=== PATIENT | female | born 1970 | race African-American/Black ===

== ENCOUNTER 2018-09-23 22:51 | Emergency (ER) | payer OTHER ==
[~2018-09-23] VITALS: Ht 165.1 cm; Wt 73.0 kg
[~2018-09-23 22:51] MED LIST: DICY20TA11; ONDA4TAB50
[2018-09-24] MEDS ORDERED: ONDANSETRON 4MG ODT PO ONE (01:00)
[2018-09-24] MEDS ORDERED: MORPHINE SULFATE 10 MG/ML CPJ IM ONE (01:00)
[2018-09-24 01:22] LABS: CHLORIDE 104 mEq/L (98-107)
[2018-09-24 01:23] LABS: BASOPHILS % 0.4 % (0.0-2.0); EOSINOPHILS % 1.9 % (0.0-5.0); HEMATOCRIT. 38.9 % (36.0-48.0); HEMOGLOBIN. 13.6 g/dL (12.0-16.0); LYMPHOCYTES % 30.7 % (20.0-50.0); MEAN CORPUSCULAR HEMOGLOBIN 32.8 pg (28.0-32.0); MEAN CORPUSCULAR VOLUME 93.9 fL (81.0-99.0); MEAN PLATELET VOLUME 7.1 fl (7.4-10.4); MONOCYTES % 9.2 % (2.0-8.0); NEUTROPHILS % 57.8 % (40.0-76.0); PLATELET 305 x1000/uL (130-400); RED BLOOD CELL COUNT 4.14 mill/uL (4.2-5.4); RED CELL DISTRIBUTION WIDTH 14.2 % (11.6-14.6)
[2018-09-24 02:59] VITALS: BP 147/101
== END 2018-09-24 02:59 | disposition home or self-care (01) ==
LOC: ER 22:51
DX: S42.035A Nondisplaced fracture of lateral end of left clavicle, initial encounter for closed fracture (principal); R55 Syncope and collapse; F17.210 Nicotine dependence, cigarettes, uncomplicated; Z71.6 Tobacco abuse counseling; W01.0XXA Fall on same level from slipping, tripping and stumbling without subsequent striking against object, initial encounter; Y93.89 Activity, other specified; Y92.018 Other place in single-family (private) house as the place of occurrence of the external cause
CPT/HCPCS: 36415; 70450; 71045; 72125; 73030; 80053; 81025; 84484; 85025; 93005; 96372; 99284; 99406; J2270; Q0162; A4565

== ENCOUNTER 2018-11-04 14:22 | Emergency (ER) | payer OTHER ==
[~2018-11-04] VITALS: Ht 165.1 cm; Wt 82.0 kg
[2018-11-04] MEDS ORDERED: ONDANSETRON HCL 4MG/2ML INJ IV STA (14:36)
[2018-11-04] MEDS ORDERED: FAMOTIDINE 20MG/2ML VIAL IV STA (14:36)
[2018-11-04] MEDS ORDERED: SODIUM CHLORIDE 0.9% 1,000 ML IV ONE (14:36)
[2018-11-04] MEDS ORDERED: MORPHINE SULFATE 4 MG/ML CPJ (NOT FOR IM USE) IV STA (14:36)
[2018-11-04 14:57] LABS: HEMATOCRIT. 39.4 % (36.0-48.0); HEMOGLOBIN. 13.5 g/dL (12.0-16.0); MEAN CORPUSCULAR HEMOGLOBIN 32.2 pg (28.0-32.0); MEAN CORPUSCULAR VOLUME 94.2 fL (81.0-99.0); MEAN PLATELET VOLUME 7.2 fl (7.4-10.4); PLATELET 689 x1000/uL (130-400); RED BLOOD CELL COUNT 4.19 mill/uL (4.2-5.4); RED CELL DISTRIBUTION WIDTH 14.8 % (11.6-14.6)
[2018-11-04 15:03] LABS: CHLORIDE 109 mEq/L (98-107)
[2018-11-04 15:04] LABS: INR 1.1; PROTHROMBIN TIME 11.2 sec (9.6-11.0)
[2018-11-04 15:07] LABS: ETHANOL BLOOD < 10 mg/dL
[2018-11-04 15:10] LABS: CLARITY URINE TURBID (CLEAR); COLOR URINE DARK YELLOW (YELLOW); KETONES URINE TRACE (NEGATIVE); LEUKOCYTE ESTERASE URINE 2+ (NEGATIVE); NITRITE URINE POSITIVE (NEGATIVE); OCCULT BLOOD URINE 3+ (NEGATIVE); PH URINE 5.5 (4.5-8.0); PROTEIN URINE 2+ (NEGATIVE)
[2018-11-04 15:21] LABS: HCG SCREEN NEGATIVE
[2018-11-04 15:36] LABS: *AMPHETAMINES SCREEN URINE NEGATIVE (NEGATIVE); *BARBITURATES SCREEN URINE NEGATIVE (NEGATIVE); *BENZODIAZEPINES SCREEN URINE NEGATIVE (NEGATIVE); *COCAINE SCREEN URINE NEGATIVE (NEGATIVE)
[2018-11-04 15:37] LABS: CANNABINOID URINE SCREEN NEGATIVE (NEGATIVE); METHADONE URINE SCREEN NEGATIVE (NEGATIVE); PHENCYCLIDINE URINE SCREEN NEGATIVE (NEGATIVE)
[2018-11-04 15:41] LABS: OPIATES URINE SCREEN PRESUMTIVE POSITIVE (NEGATIVE)
[2018-11-04 15:42] LABS: PLATELET ESTIMATE MARKEDLY INCREASED
[2018-11-04] MEDS ORDERED: CEFTRIAXONE 1 G PREMIX 50 ML IV ONE (15:45)
[2018-11-04] MEDS ORDERED: LEVOFLOXACIN 500MG PREMIX 100 ML IV ONE (15:45)
[2018-11-04 17:58] VITALS: BP 125/86
[2018-11-12] MEDS ORDERED: ACET-2178 MT (10:47)
[2018-11-12] MEDS ORDERED: CIPR500S3 PO (10:47)
[2018-11-12] MEDS ORDERED: AMLO10TA4 PO (10:47)
[2018-11-12] MEDS ORDERED: PANT40TA4 PO (10:47)
== END 2018-11-04 18:30 | disposition home or self-care (01) ==
LOC: ER 14:22 → CANBEDREQ 19:27
DX: N39.0 Urinary tract infection, site not specified (principal); R11.2 Nausea with vomiting, unspecified; I10 Essential (primary) hypertension; K25.9 Gastric ulcer, unspecified as acute or chronic, without hemorrhage or perforation; Z98.890 Other specified postprocedural states
CPT/HCPCS: 36415; 71045; 74176; 80053; 80305; 80320; 81003; 83690; 84703; 85025; 85610; 87077; 87086; 87186; 96365; 96375; 99284; J0696; J2270; J2405; J3490; J7030; Z7610; G0480

== ENCOUNTER 2018-11-10 12:59 | Emergency (ER) | payer OTHER ==
[~2018-11-10] VITALS: Ht 170.2 cm; Wt 59.0 kg
[2018-11-10] MEDS ORDERED: MORPHINE SULFATE 4 MG/ML CPJ (NOT FOR IM USE) IV STA ×2 (14:20→16:41)
[2018-11-10] MEDS ORDERED: ONDANSETRON HCL 4MG/2ML INJ IV STA ×2 (14:20→16:41)
[2018-11-10 14:35] LABS: BASOPHILS % 0.6 % (0.0-2.0); HEMATOCRIT. 42.7 % (36.0-48.0); HEMOGLOBIN. 14.3 g/dL (12.0-16.0); LYMPHOCYTES % 18.1 % (20.0-50.0); MEAN CORPUSCULAR VOLUME 92.5 fL (81.0-99.0); MEAN PLATELET VOLUME 7.3 fl (7.4-10.4); MONOCYTES % 9.5 % (2.0-8.0); NEUTROPHILS % 71.8 % (40.0-76.0); PLATELET 398 x1000/uL (130-400); RED BLOOD CELL COUNT 4.62 mill/uL (4.2-5.4); RED CELL DISTRIBUTION WIDTH 14.1 % (11.6-14.6)
[2018-11-10 14:41] LABS: CHLORIDE 103 mEq/L (98-107)
[2018-11-10 16:45] LABS: CLARITY URINE CLEAR (CLEAR); COLOR URINE DARK YELLOW (YELLOW); KETONES URINE 3+ (NEGATIVE); LEUKOCYTE ESTERASE URINE TRACE (NEGATIVE); NITRITE URINE NEGATIVE (NEGATIVE); OCCULT BLOOD URINE 3+ (NEGATIVE); PH URINE 7.5 (4.5-8.0); PROTEIN URINE 2+ (NEGATIVE); SPECIFIC GRAVITY URINE 1.017 (1.005-1.030)
[2018-11-10] MEDS ORDERED: CEFTRIAXONE 1 G PREMIX 50 ML IV NR (17:15)
[2018-11-10] MEDS ORDERED: HYDROCODONE/ACETAMINOPHEN 5/325MG TABLET PO ONE (17:45)
[2018-11-10 18:15] VITALS: BP 125/98
[2018-11-10] MEDS ORDERED: IOHEXOL-300 100 ML BOTTLE ONE (19:15)
[2018-11-12] MEDS ORDERED: AMLO10TA4 PO (10:47)
[2018-11-12] MEDS ORDERED: PANT40TA4 PO (10:47)
[2018-11-12] MEDS ORDERED: ACET-2178 MT (10:47)
[2018-11-12] MEDS ORDERED: CIPR500S3 PO (10:47)
== END 2018-11-10 18:19 | disposition home or self-care (01) ==
LOC: ER 12:59
DX: R10.13 Epigastric pain (principal); R11.2 Nausea with vomiting, unspecified; I10 Essential (primary) hypertension; Z87.11 Personal history of peptic ulcer disease; Z98.890 Other specified postprocedural states
CPT/HCPCS: 36415; 74177; 80053; 81003; 81025; 83690; 85025; 96365; 96375; 96376; 99284; J0696; J2270; J2405; Q9967

== ENCOUNTER 2018-11-14 15:34 | Emergency (ER) | payer OTHER ==
[~2018-11-14] VITALS: Ht 167.6 cm; Wt 75.0 kg
[~2018-11-14 15:34] MED LIST changes: +ACET-2178 MT; +AMLO10TA4 PO; +PANT40TA4 PO
[2018-11-14] MEDS ORDERED: SODIUM CHLORIDE 0.9% 1,000 ML IV ONE (16:45)
[2018-11-14] MEDS ORDERED: ONDANSETRON HCL 4MG/2ML INJ IV ONE ×2 (16:45→20:00)
[2018-11-14] MEDS ORDERED: KETOROLAC 30MG/ML VIAL IV ONE (17:00)
[2018-11-14 17:07] LABS: EOSINOPHILS % 0.4 % (0.0-5.0); HEMATOCRIT. 44.9 % (36.0-48.0); HEMOGLOBIN. 15.3 g/dL (12.0-16.0); LYMPHOCYTES % 26.8 % (20.0-50.0); MEAN CORPUSCULAR HEMOGLOBIN 31.4 pg (28.0-32.0); MEAN CORPUSCULAR VOLUME 92.1 fL (81.0-99.0); MONOCYTES % 12.7 % (2.0-8.0); NEUTROPHILS % 59.1 % (40.0-76.0); PLATELET 309 x1000/uL (130-400); RED BLOOD CELL COUNT 4.87 mill/uL (4.2-5.4); RED CELL DISTRIBUTION WIDTH 13.6 % (11.6-14.6)
[2018-11-14 17:12] LABS: CHLORIDE 99 mEq/L (98-107)
[2018-11-14 17:19] LABS: INR 1.1; PROTHROMBIN TIME 11.8 sec (9.6-11.0)
[2018-11-14] MEDS ORDERED: FAMOTIDINE 20MG/2ML VIAL IV ONE (18:00)
[2018-11-14] MEDS ORDERED: MORPHINE SULFATE 4 MG/ML CPJ (NOT FOR IM USE) IV NR (18:00)
[2018-11-14] MEDS ORDERED: KETOROLAC 15MG/ML VIAL IV NR (18:15)
[2018-11-14 19:26] LABS: CLARITY URINE CLOUDY (CLEAR); COLOR URINE YELLOW (YELLOW); KETONES URINE 2+ (NEGATIVE); LEUKOCYTE ESTERASE URINE NEGATIVE (NEGATIVE); NITRITE URINE NEGATIVE (NEGATIVE); OCCULT BLOOD URINE 3+ (NEGATIVE); PH URINE 7.5 (4.5-8.0); PROTEIN URINE 1+ (NEGATIVE); SPECIFIC GRAVITY URINE 1.016 (1.005-1.030); UROBILINOGEN URINE 0.2 E.U./dL (0.2-1.0)
[2018-11-14] MEDS ORDERED: LORAZEPAM 2MG/ML CPJ IV ONE (20:00)
[2018-11-14] MEDS ORDERED: METOCLOPRAMIDE HCL 10MG/2ML VIAL IV ONE (20:00)
[2018-11-15 01:15] VITALS: BP 124/58
== END 2018-11-15 01:21 | disposition short-term general hospital (02) ==
LOC: ER 15:34 → CANRESERV 23:08 → ENRESERV 23:08 → ER 11-15 01:21 → CANBEDREQ 11-15 06:20
DX: R11.2 Nausea with vomiting, unspecified (principal); R10.84 Generalized abdominal pain; I10 Essential (primary) hypertension; Z79.899 Other long term (current) drug therapy; Z98.890 Other specified postprocedural states
CPT/HCPCS: 36415; 80053; 81003; 83690; 85025; 85610; 96361; 96374; 96375; 99285; J1885; J2060; J2270; J2405; J2765; J3490; J7030

== ENCOUNTER 2019-05-09 03:34 | Inpatient (IN) | payer OTHER ==
[~2019-05-09] VITALS: Ht 167.6 cm; Wt 60.3 kg
[~2019-05-09 03:34] MED LIST changes: -ACET-2178 MT; -DICY20TA11; +DICY20TA11 PO; -ONDA4TAB50; +ONDA4TAB50 PO; +TOPUD MT
[2019-05-09] MEDS ORDERED: MAGNESIUM/ALUMINUM HYDROXIDE/SIMETHICONE 30ML UDC PO STA (03:55)
[2019-05-09] MEDS ORDERED: ONDANSETRON 4MG ODT PO STA (03:55)
[2019-05-09] MEDS ORDERED: VISCOUS LIDOCAINE 2% 15 ML UDC PO STA (03:55)
[2019-05-09 04:28] LABS: BASOPHILS % 1.2 % (0.0-2.0); EOSINOPHILS % 0.6 % (0.0-5.0); HEMOGLOBIN. 15.1 g/dL (12.0-16.0); LYMPHOCYTES % 36.5 % (20.0-50.0); MEAN CORPUSCULAR HEMOGLOBIN 31.6 pg (28.0-32.0); MEAN CORPUSCULAR VOLUME 92.3 fL (81.0-99.0); MEAN PLATELET VOLUME 7.5 fl (7.4-10.4); MONOCYTES % 10.5 % (2.0-8.0); NEUTROPHILS % 51.2 % (40.0-76.0); PLATELET 271 x1000/uL (130-400); RED BLOOD CELL COUNT 4.77 mill/uL (4.2-5.4); RED CELL DISTRIBUTION WIDTH 13.4 % (11.6-14.6)
[2019-05-09 04:30] LABS: CHLORIDE 101 mEq/L (98-107)
[2019-05-09 04:31] LABS: INR 1.1; PROTHROMBIN TIME 11.1 sec (9.6-11.0)
[2019-05-09 04:34] LABS: ETHANOL BLOOD < 10 mg/dL
[2019-05-09] MEDS ORDERED: ASPIRIN 325MG EC TABLET PO ONE (05:00)
[2019-05-09] MEDS ORDERED: POTASSIUM CHLORIDE 20MEQ TABLET SR PO SCH (05:00)
[2019-05-09] MEDS ORDERED: ONDANSETRON HCL 4MG/2ML INJ IV ONE (05:00)
[2019-05-09] MEDS ORDERED: METOCLOPRAMIDE HCL 10MG/2ML VIAL IV ONE (06:45)
[2019-05-09 08:38] LABS: CLARITY URINE CLOUDY (CLEAR); COLOR URINE YELLOW (YELLOW); KETONES URINE 1+ (NEGATIVE); LEUKOCYTE ESTERASE URINE NEGATIVE (NEGATIVE); NITRITE URINE NEGATIVE (NEGATIVE); OCCULT BLOOD URINE 2+ (NEGATIVE); PH URINE 6.5 (4.5-8.0); PROTEIN URINE 1+ (NEGATIVE); SPECIFIC GRAVITY URINE 1.016 (1.005-1.030); UROBILINOGEN URINE 0.2 E.U./dL (0.2-1.0)
[2019-05-09 09:25] LABS: *AMPHETAMINES SCREEN URINE NEGATIVE (NEGATIVE); *BARBITURATES SCREEN URINE NEGATIVE (NEGATIVE); *BENZODIAZEPINES SCREEN URINE NEGATIVE (NEGATIVE)
[2019-05-09 09:26] LABS: *COCAINE SCREEN URINE NEGATIVE (NEGATIVE); CANNABINOID URINE SCREEN NEGATIVE (NEGATIVE); METHADONE URINE SCREEN NEGATIVE (NEGATIVE); PHENCYCLIDINE URINE SCREEN NEGATIVE (NEGATIVE)
[2019-05-09 09:30] LABS: OPIATES URINE SCREEN PRESUMTIVE POSITIVE (NEGATIVE)
[2019-05-09] MEDS ORDERED: MORPHINE SULFATE 2 MG/ML CPJ (NOT FOR IM USE) IV NR (10:00)
[2019-05-09] MEDS ORDERED: ENALAPRIL 1.25MG/ML VIAL 1ML IV NR (10:00)
[2019-05-09] MEDS: ONDANSETRON HCL 4MG/2ML INJ IV NR ×2 (10:03→11:25)
[2019-05-09 10:10] VITALS: BP 153/96
[2019-05-09] MEDS ORDERED: CLONIDINE 0.1MG TABLET PO NR (11:00)
[2019-05-09] MEDS ORDERED: MORPHINE SULFATE 2 MG/ML CPJ (NOT FOR IM USE) IV PRN (11:00)
[2019-05-09] MEDS ORDERED: ONDANSETRON HCL 4MG/2ML INJ IV PRN (11:00)
[2019-05-09 12:00] VITALS: BP 163/106
[2019-05-09] MEDS ORDERED: APIX5TAB MT (12:56)
[2019-05-09] MEDS ORDERED: OMEP20CA5 MT (12:56)
[2019-05-09] MEDS ORDERED: KCL 20MEQ/100ML PREMIX 100 ML IV NR (13:00)
[2019-05-09 13:15] VITALS: BP 163/106
== END 2019-05-09 13:48 | disposition short-term general hospital (02) | DRG 241 ==
LOC: ER 03:34 → CANBEDREQ 07:52 → 7WST 09:08 → ENRESERV 09:34
PROVIDERS: ADMIT Internal Medicine; ATTEND Internal Medicine
DX: K25.9 Gastric ulcer, unspecified as acute or chronic, without hemorrhage or perforation (principal); E87.6 Hypokalemia; K52.9 Noninfective gastroenteritis and colitis, unspecified; F17.210 Nicotine dependence, cigarettes, uncomplicated; R74.0 Nonspecific elevation of levels of transaminase and lactic acid dehydrogenase [LDH]; R07.89 Other chest pain; R73.9 Hyperglycemia, unspecified; I10 Essential (primary) hypertension; N39.0 Urinary tract infection, site not specified; Z79.01 Long term (current) use of anticoagulants; Z86.711 Personal history of pulmonary embolism; Z98.891 History of uterine scar from previous surgery; Z79.899 Other long term (current) drug therapy
CPT/HCPCS: 36415; 74176; 80305; 80320; 81003; 83735; 84484; 99285; J2270; J2405; J2765; J3480; J3490; Q0162; G0480

== ENCOUNTER 2019-06-04 16:51 | Inpatient (IN) | payer OTHER ==
[~2019-06-04] VITALS: Ht 167.6 cm; Wt 59.9 kg
[2019-06-04] MEDS ORDERED: LORAZEPAM 2MG/ML CPJ IV STA (19:01)
[2019-06-04] MEDS ORDERED: SODIUM CHLORIDE 0.9% 1,000 ML IV ONE (19:01)
[2019-06-04 20:53] LABS: BASOPHILS % 1.3 % (0.0-2.0); EOSINOPHILS % 0.5 % (0.0-5.0); HEMOGLOBIN. 15.5 g/dL (12.0-16.0); LYMPHOCYTES % 39.5 % (20.0-50.0); MEAN CORPUSCULAR VOLUME 91.9 fL (81.0-99.0); MEAN PLATELET VOLUME 7.2 fl (7.4-10.4); MONOCYTES % 12.7 % (2.0-8.0); PLATELET 247 x1000/uL (130-400)
[2019-06-04 20:55] LABS: CLARITY URINE CLEAR (CLEAR); COLOR URINE YELLOW (YELLOW); KETONES URINE TRACE (NEGATIVE); LEUKOCYTE ESTERASE URINE NEGATIVE (NEGATIVE); NITRITE URINE NEGATIVE (NEGATIVE); OCCULT BLOOD URINE 1+ (NEGATIVE); PH URINE 7.5 (4.5-8.0); PROTEIN URINE 1+ (NEGATIVE); SPECIFIC GRAVITY URINE 1.015 (1.005-1.030)
[2019-06-04 20:59] LABS: INR 1.1; PROTHROMBIN TIME 11.5 sec (9.6-11.0)
[2019-06-04 21:03] LABS: CHLORIDE 101 mEq/L (98-107)
[2019-06-04 21:05] LABS: METHADONE URINE SCREEN NEGATIVE (NEGATIVE)
[2019-06-04 21:06] LABS: *AMPHETAMINES SCREEN URINE NEGATIVE (NEGATIVE); *BARBITURATES SCREEN URINE NEGATIVE (NEGATIVE); *BENZODIAZEPINES SCREEN URINE NEGATIVE (NEGATIVE); *COCAINE SCREEN URINE NEGATIVE (NEGATIVE); CANNABINOID URINE SCREEN NEGATIVE (NEGATIVE); PHENCYCLIDINE URINE SCREEN NEGATIVE (NEGATIVE)
[2019-06-04 21:10] LABS: ETHANOL BLOOD < 10 mg/dL
[2019-06-04 21:10] LABS: OPIATES URINE SCREEN PRESUMTIVE POSITIVE (NEGATIVE)
[2019-06-04 21:13] LABS: CREATINE KINASE 144 IU/L (26-192)
[2019-06-04 21:51] LABS: HCG SCREEN NEGATIVE
[2019-06-04] MEDS ORDERED: ONDANSETRON HCL 4MG/2ML INJ IV STA (23:11)
[2019-06-04] MEDS ORDERED: MORPHINE SULFATE 4 MG/ML CPJ (NOT FOR IM USE) IV STA (23:11)
[2019-06-05] MEDS ORDERED: IPRATROPIUM/ALBUTEROL 0.5-3(2.5)MG/3ML NEB HHN PRN (16:00)
[2019-06-05] MEDS ORDERED: CLONIDINE 0.1MG TABLET PO PRN (16:00)
[2019-06-05] MEDS ORDERED: ACETAMINOPHEN 325MG TABLET PO PRN (16:00)
[2019-06-05] MEDS ORDERED: ONDANSETRON HCL 4MG/2ML INJ IV PRN (16:00)
[2019-06-05 21:00] VITALS: BP 123/77
[2019-06-05] MEDS: HYDROCODONE/ACETAMINOPHEN 5/325MG TABLET PO PRN (21:53)
[2019-06-05] MEDS: DEXT 5%/0.45% NACL 1000ML 1,000 ML IV SCH (21:57)
[2019-06-05 23:31] VITALS: BP 123/77
[2019-06-06] VITALS (7 sets, daily range): BP systolic 128–145; BP diastolic 79–96
[2019-06-06 08:37] LABS: LYMPHOCYTES % 35.4 % (20.0-50.0); MEAN CORPUSCULAR HEMOGLOBIN 30.8 pg (28.0-32.0); MEAN CORPUSCULAR VOLUME 92.2 fL (81.0-99.0); MONOCYTES % 10.4 % (2.0-8.0); NEUTROPHILS % 49.2 % (40.0-76.0); PLATELET 216 x1000/uL (130-400); RED BLOOD CELL COUNT 4.88 mill/uL (4.2-5.4)
[2019-06-06 08:49] LABS: CHLORIDE 106 mEq/L (98-107)
[2019-06-06] MEDS: ENOXAPARIN 40MG/0.4ML SYR SUBCUT SCH (08:50)
[2019-06-06 08:56] LABS: HDL CHOLESTEROL 79 mg/dL (40-59); LDL CHOLESTEROL 69 mg/dL (5-100)
[2019-06-06] MEDS ORDERED: LORAZEPAM 2MG/ML CPJ IV PRN (11:15)
[2019-06-06] MEDS: LORAZEPAM 2MG/ML CPJ IV PRN ×2 (13:35→21:41)
[2019-06-06] MEDS: DEXT 5%/0.45% NACL 1000ML 1,000 ML IV SCH (21:58)
[2019-06-06] MEDS: HYDROCODONE/ACETAMINOPHEN 5/325MG TABLET PO PRN (21:59)
[2019-06-07] VITALS: BP 155/108
[2019-06-07] MEDS ORDERED: METOCLOPRAMIDE HCL 10MG/2ML VIAL IV SCH
[2019-06-07] MEDS: METOCLOPRAMIDE HCL 10MG/2ML VIAL IV PRN ×2 (00:09→06:08)
[2019-06-07] MEDS: MORPHINE SULFATE 2 MG/ML CPJ (NOT FOR IM USE) IV PRN ×3 (00:09→17:46)
[2019-06-07] MEDS: LORAZEPAM 2MG/ML CPJ IV PRN ×3 (03:49→17:31)
[2019-06-07 04:00] VITALS: BP 156/125
[2019-06-07 07:17] LABS: HEMATOCRIT 45.4 % (36.0-48.0); HEMOGLOBIN 15.6 g/dL (12.0-16.0); MEAN CORPUSCULAR HEMOGLOBIN 31.6 pg (28.0-32.0); PLATELET 221 x1000/uL (130-400); RED BLOOD CELL COUNT 4.93 mill/uL (4.2-5.4); RED CELL DISTRIBUTION WIDTH 14.2 % (11.6-14.6)
[2019-06-07 07:46] LABS: CHLORIDE 105 mEq/L (98-107)
[2019-06-07 08:00] VITALS: BP 99/57
[2019-06-07] MEDS: ENOXAPARIN 40MG/0.4ML SYR SUBCUT SCH (09:09)
[2019-06-07 11:16] LABS: HEPATITIS B SURFACE ANTIGEN NEGATIVE
[2019-06-07] MEDS: POTASSIUM CHLORIDE INJ 40 MEQ in DEXT 5% WATER 250 ML IV NR ×2 (11:30→14:59)
[2019-06-07 11:46] LABS: HEPATITIS A AB IGM NEGATIVE (NEGATIVE)
[2019-06-07 12:00] VITALS: BP 103/60
[2019-06-07] MEDS: DEXT 5%/0.45% NACL 1000ML 1,000 ML IV SCH (14:57)
[2019-06-07 16:00] VITALS: BP 112/76
[2019-06-07] MEDS ORDERED: POTASSIUM CHLORIDE 20MEQ/PACKET PO NR (17:15)
[2019-06-07 20:00] VITALS: BP 101/73
[2019-06-07] MEDS: CHLORDIAZEPOXIDE 25MG CAPSULE PO SCH (23:59)
[2019-06-08] VITALS: BP 129/88
[2019-06-08] MEDS: MORPHINE SULFATE 2 MG/ML CPJ (NOT FOR IM USE) IV PRN ×4 (01:56→16:45)
[2019-06-08 04:00] VITALS: BP 112/78
[2019-06-08] MEDS: CHLORDIAZEPOXIDE 25MG CAPSULE PO SCH ×2 (05:50→13:42)
[2019-06-08] MEDS: DEXT 5%/0.45% NACL 1000ML 1,000 ML IV SCH ×2 (05:52→09:53)
[2019-06-08 06:23] LABS: HEMATOCRIT 42.4 % (36.0-48.0); HEMOGLOBIN 14.4 g/dL (12.0-16.0); MEAN CORPUSCULAR HEMOGLOBIN 31.3 pg (28.0-32.0); MEAN CORPUSCULAR VOLUME 92.1 fL (81.0-99.0); PLATELET 211 x1000/uL (130-400)
[2019-06-08 06:38] LABS: CHLORIDE 107 mEq/L (98-107)
[2019-06-08 07:47] VITALS: BP 104/72
[2019-06-08] MEDS: ENOXAPARIN 40MG/0.4ML SYR SUBCUT SCH (08:00)
[2019-06-08] MEDS: LORAZEPAM 2MG/ML CPJ IV PRN ×2 (09:53→16:45)
[2019-06-08 12:00] VITALS: BP 109/72
[2019-06-08 16:00] VITALS: BP 111/85
[2019-06-08 16:45] VITALS: BP 111/85
== END 2019-06-08 18:58 | disposition home or self-care (01) | DRG 280 ==
LOC: ER 16:51 → 7WST 23:50 → ENRESERV 06-05 18:28
PROVIDERS: ADMIT Internal Medicine; ATTEND Internal Medicine
DX: K70.9 Alcoholic liver disease, unspecified (principal); G93.40 Encephalopathy, unspecified; E86.0 Dehydration; F10.239 Alcohol dependence with withdrawal, unspecified; F41.0 Panic disorder [episodic paroxysmal anxiety]; I10 Essential (primary) hypertension; E87.6 Hypokalemia; F32.9 Major depressive disorder, single episode, unspecified; F17.210 Nicotine dependence, cigarettes, uncomplicated; R19.7 Diarrhea, unspecified; Z91.19 Patient's noncompliance with other medical treatment and regimen
CPT/HCPCS: 36415; 72040; 73030; 73521; 74176; 76705; 80048; 80053; 80061; 80076; 80305; 80320; 81003; 81025; 82550; 83605; 83735; 84484; 84703; 85025; 85027; 86705; 86709; 86803; 87340; 93005; 96374; 96375; 97162; 99285; J1650; J2060; J2270; J2405; J2765; J3480; J7030; J7060; G0480

== ENCOUNTER 2019-06-11 00:45 | Emergency (ER) | payer OTHER ==
[~2019-06-11] VITALS: Ht 167.6 cm; Wt 65.0 kg
[2019-06-11] MEDS ORDERED: SODIUM CHLORIDE 0.9% 1,000 ML IV ONE (04:44)
[2019-06-11] MEDS ORDERED: ONDANSETRON HCL 4MG/2ML INJ IV STA (04:44)
[2019-06-11] MEDS ORDERED: MORPHINE SULFATE 4 MG/ML CPJ (NOT FOR IM USE) IV STA (04:44)
[2019-06-11] MEDS ORDERED: MAGNESIUM/ALUMINUM HYDROXIDE/SIMETHICONE 30ML UDC PO ONE (04:45)
[2019-06-11] MEDS ORDERED: LORAZEPAM 2MG/ML CPJ IV ONE (04:45)
[2019-06-11] MEDS ORDERED: FAMOTIDINE 20MG/2ML VIAL IV ONE (04:45)
[2019-06-11 05:10] VITALS: BP 188/86
[2019-06-11 05:14] LABS: BASOPHILS % 0.5 % (0.0-2.0); EOSINOPHILS % 0.3 % (0.0-5.0); HEMATOCRIT. 50.9 % (36.0-48.0); HEMOGLOBIN. 17.1 g/dL (12.0-16.0); LYMPHOCYTES % 15.2 % (20.0-50.0); MEAN CORPUSCULAR HEMOGLOBIN 31.1 pg (28.0-32.0); MEAN CORPUSCULAR VOLUME 92.8 fL (81.0-99.0); MEAN PLATELET VOLUME 7.8 fl (7.4-10.4); MONOCYTES % 4.9 % (2.0-8.0); NEUTROPHILS % 79.1 % (40.0-76.0); PLATELET 238 x1000/uL (130-400); RED BLOOD CELL COUNT 5.49 mill/uL (4.2-5.4); RED CELL DISTRIBUTION WIDTH 14.2 % (11.6-14.6)
[2019-06-11 05:22] LABS: CHLORIDE 107 mEq/L (98-107)
[2019-06-11 05:26] LABS: ETHANOL BLOOD < 10 mg/dL
[2019-06-11 05:27] LABS: HCG SCREEN NEGATIVE
[2019-06-11 05:32] LABS: CLARITY URINE CLOUDY (CLEAR); COLOR URINE YELLOW (YELLOW); KETONES URINE 3+ (NEGATIVE); LEUKOCYTE ESTERASE URINE NEGATIVE (NEGATIVE); NITRITE URINE NEGATIVE (NEGATIVE); OCCULT BLOOD URINE 1+ (NEGATIVE); PH URINE >=9.0 (4.5-8.0); PROTEIN URINE 1+ (NEGATIVE); SPECIFIC GRAVITY URINE 1.018 (1.005-1.030); UROBILINOGEN URINE 0.2 E.U./dL (0.2-1.0)
[2019-06-11 05:54] LABS: *AMPHETAMINES SCREEN URINE NEGATIVE (NEGATIVE)
[2019-06-11 05:55] LABS: *BARBITURATES SCREEN URINE NEGATIVE (NEGATIVE); *COCAINE SCREEN URINE NEGATIVE (NEGATIVE); METHADONE URINE SCREEN NEGATIVE (NEGATIVE); PHENCYCLIDINE URINE SCREEN NEGATIVE (NEGATIVE)
[2019-06-11 05:56] LABS: CANNABINOID URINE SCREEN NEGATIVE (NEGATIVE)
[2019-06-11 06:01] LABS: *BENZODIAZEPINES SCREEN URINE PRESUMTIVE POSITIVE (NEGATIVE); OPIATES URINE SCREEN PRESUMTIVE POSITIVE (NEGATIVE)
== END 2019-06-11 08:00 | disposition home or self-care (01) ==
LOC: ER 00:45
DX: K29.70 Gastritis, unspecified, without bleeding (principal); I10 Essential (primary) hypertension; F17.200 Nicotine dependence, unspecified, uncomplicated; E78.5 Hyperlipidemia, unspecified; Z87.11 Personal history of peptic ulcer disease
CPT/HCPCS: 36415; 71045; 80053; 80305; 80320; 81003; 83690; 83880; 84484; 84703; 85025; 93005; 96361; 96374; 96375; 99284; J2060; J2270; J2405; J3490; J7030; Z7610; G0480

== ENCOUNTER 2019-06-18 19:50 | Emergency (ER) | payer OTHER ==
[~2019-06-18] VITALS: Ht 167.6 cm; Wt 63.0 kg
[2019-06-18] MEDS ORDERED: HYDROXYZINE 25MG TABLET PO ONE (20:30)
[2019-06-18] MEDS ORDERED: ONDANSETRON 4MG ODT PO ONE (20:30)
[2019-06-18 21:37] VITALS: BP 138/95
== END 2019-06-18 21:37 | disposition home or self-care (01) ==
LOC: ER 19:50
DX: F41.9 Anxiety disorder, unspecified (principal); I10 Essential (primary) hypertension; F32.9 Major depressive disorder, single episode, unspecified; F17.200 Nicotine dependence, unspecified, uncomplicated
CPT/HCPCS: 99283; Q0162

== ENCOUNTER 2019-06-23 15:58 | Emergency (ER) | payer OTHER ==
[~2019-06-23] VITALS: Ht 167.6 cm; Wt 64.0 kg
[2019-06-23] MEDS ORDERED: DICYCLOMINE 10 MG/5 ML ORAL SYR PO STA (16:18)
[2019-06-23] MEDS ORDERED: VISCOUS LIDOCAINE 2% 15 ML UDC PO STA (16:18)
[2019-06-23] MEDS ORDERED: MAGNESIUM/ALUMINUM HYDROXIDE/SIMETHICONE 30ML UDC PO STA (16:18)
[2019-06-23 17:07] LABS: BASOPHILS % 1.1 % (0.0-2.0); EOSINOPHILS % 1.9 % (0.0-5.0); HEMATOCRIT. 48.9 % (36.0-48.0); HEMOGLOBIN. 16.5 g/dL (12.0-16.0); LYMPHOCYTES % 32.6 % (20.0-50.0); MEAN CORPUSCULAR HEMOGLOBIN 31.2 pg (28.0-32.0); MEAN CORPUSCULAR VOLUME 92.5 fL (81.0-99.0); MONOCYTES % 11.2 % (2.0-8.0); NEUTROPHILS % 53.2 % (40.0-76.0); PLATELET 360 x1000/uL (130-400); RED BLOOD CELL COUNT 5.28 mill/uL (4.2-5.4); RED CELL DISTRIBUTION WIDTH 14.6 % (11.6-14.6)
[2019-06-23 17:13] LABS: CLARITY URINE CLEAR (CLEAR); COLOR URINE YELLOW (YELLOW); KETONES URINE NEGATIVE (NEGATIVE); LEUKOCYTE ESTERASE URINE NEGATIVE (NEGATIVE); NITRITE URINE NEGATIVE (NEGATIVE); OCCULT BLOOD URINE 1+ (NEGATIVE); PH URINE 6.5 (4.5-8.0); PROTEIN URINE 1+ (NEGATIVE); SPECIFIC GRAVITY URINE 1.025 (1.005-1.030)
[2019-06-23 17:14] LABS: CHLORIDE 108 mEq/L (98-107)
[2019-06-23 18:31] VITALS: BP 170/80
== END 2019-06-23 18:33 | disposition home or self-care (01) ==
LOC: ER 15:58
DX: R10.13 Epigastric pain (principal); E11.9 Type 2 diabetes mellitus without complications; I10 Essential (primary) hypertension
CPT/HCPCS: 36415; 74018; 80053; 81003; 81025; 83690; 85025; 99284; Z7610

== ENCOUNTER 2019-10-24 19:08 | Emergency (ER) | payer OTHER ==
[~2019-10-24] VITALS: Ht 170.2 cm; Wt 57.0 kg
[2019-10-24] MEDS ORDERED: MAGNESIUM/ALUMINUM HYDROXIDE/SIMETHICONE 30ML UDC PO ONE (19:15)
[2019-10-24] MEDS ORDERED: VISCOUS LIDOCAINE 2% 15 ML UDC PO ONE (19:15)
[2019-10-24] MEDS ORDERED: ASPIRIN 81MG TABLET PO ONE (19:15)
[2019-10-24] MEDS ORDERED: ONDANSETRON HCL 4MG/2ML INJ IV ONE (19:30)
[2019-10-24 19:52] LABS: BASOPHILS % 0.5 % (0.0-2.0); CHLORIDE 106 mEq/L (98-107); EOSINOPHILS % 1.2 % (0.0-5.0); HEMATOCRIT. 38.7 % (36.0-48.0); HEMOGLOBIN. 13.4 g/dL (12.0-16.0); LYMPHOCYTES % 44.7 % (20.0-50.0); MEAN CORPUSCULAR HEMOGLOBIN 30.4 pg (28.0-32.0); MEAN CORPUSCULAR VOLUME 87.9 fL (81.0-99.0); MEAN PLATELET VOLUME 7.1 fl (7.4-10.4); MONOCYTES % 10.8 % (2.0-8.0); NEUTROPHILS % 42.8 % (40.0-76.0); PLATELET 282 x1000/uL (130-400); RED BLOOD CELL COUNT 4.41 mill/uL (4.2-5.4); RED CELL DISTRIBUTION WIDTH 14.2 % (11.6-14.6)
[2019-10-24 21:07] LABS: *AMPHETAMINES SCREEN URINE NEGATIVE (NEGATIVE); *BARBITURATES SCREEN URINE NEGATIVE (NEGATIVE); *BENZODIAZEPINES SCREEN URINE NEGATIVE (NEGATIVE); *COCAINE SCREEN URINE NEGATIVE (NEGATIVE); METHADONE URINE SCREEN NEGATIVE (NEGATIVE)
[2019-10-24 21:08] LABS: CANNABINOID URINE SCREEN NEGATIVE (NEGATIVE); PHENCYCLIDINE URINE SCREEN NEGATIVE (NEGATIVE)
[2019-10-24 21:18] LABS: OPIATES URINE SCREEN PRESUMTIVE POSITIVE (NEGATIVE)
[2019-10-24] MEDS ORDERED: NITROGLYCERIN 0.4MG TABLET SL SL ONE (21:45)
[2019-10-24] MEDS ORDERED: KETOROLAC 30MG/ML VIAL IV ONE (23:30)
[2019-10-25 12:27] LABS: BASOPHILS % 0.9 % (0.0-2.0); EOSINOPHILS % 6.5 % (0.0-5.0); HEMATOCRIT. 40.1 % (36.0-48.0); HEMOGLOBIN. 13.6 g/dL (12.0-16.0); LYMPHOCYTES % 41.5 % (20.0-50.0); MEAN CORPUSCULAR VOLUME 88.3 fL (81.0-99.0); MEAN PLATELET VOLUME 6.9 fl (7.4-10.4); MONOCYTES % 11.4 % (2.0-8.0); NEUTROPHILS % 39.7 % (40.0-76.0); PLATELET 263 x1000/uL (130-400); RED BLOOD CELL COUNT 4.54 mill/uL (4.2-5.4); RED CELL DISTRIBUTION WIDTH 14.4 % (11.6-14.6)
[2019-10-25 12:33] LABS: CHLORIDE 108 mEq/L (98-107)
[2019-10-25 12:42] LABS: CREATINE KINASE 63 IU/L (26-192)
[2019-10-25 12:44] LABS: CREATINE KINASE MB FRACTION < 1.0 ng/mL (0.5-3.6)
[2019-10-25] MEDS ORDERED: IPRATROPIUM/ALBUTEROL 0.5-3(2.5)MG/3ML NEB HHN NR (13:00)
[2019-10-25] MEDS ORDERED: METOCLOPRAMIDE HCL 10MG/2ML VIAL IV NR (13:15)
[2019-10-25] MEDS ORDERED: LEVOFLOXACIN 500MG PREMIX 100 ML IV SCH (14:00)
[2019-10-25 17:04] VITALS: BP 125/98
== END 2019-10-25 17:30 | disposition home or self-care (01) ==
LOC: ER 19:08 → MICUSO 23:19 → UNDOADMIN 23:19 → EDBEDREQ 23:24 → EDBEDREQTM 23:24
DX: J40 Bronchitis, not specified as acute or chronic (principal); K29.70 Gastritis, unspecified, without bleeding; F41.9 Anxiety disorder, unspecified; E11.9 Type 2 diabetes mellitus without complications; I10 Essential (primary) hypertension; R53.1 Weakness; F10.10 Alcohol abuse, uncomplicated; Y90.9 Presence of alcohol in blood, level not specified; F32.9 Major depressive disorder, single episode, unspecified; Z86.711 Personal history of pulmonary embolism; Z79.01 Long term (current) use of anticoagulants; Z91.14 Patient's other noncompliance with medication regimen
CPT/HCPCS: 36415; 71045; 76700; 80053; 80305; 81025; 82550; 82553; 83036; 83880; 84484; 85025; 85379; 93005; 93970; 96365; 96375; 99285; J1885; J1956; J2405; J2765; Z7610

== ENCOUNTER 2025-01-09 17:35 | Emergency (ER) | payer MEDICAID, OTHER ==
[~2025-01-09] VITALS: Ht 167.6 cm; Wt 73.0 kg
[2025-01-09 17:40] VITALS: O2SAT 97
[2025-01-09] MEDS: METOCLOPRAMIDE HCL 10MG/2ML VIAL IM ONE (18:30)
[2025-01-09] MEDS: DIPHENHYDRAMINE 50MG/ML VIAL IM ONE (18:30)
[2025-01-09 19:41] LABS: BASOPHILS % 1.1 % (0.0-2.0); EOSINOPHILS % 2.0 % (0.0-5.0); HEMATOCRIT. 42.6 % (36.0-48.0); HEMOGLOBIN. 14.3 g/dL (12.0-16.0); LYMPHOCYTES % 41.7 % (20.0-50.0); MEAN PLATELET VOLUME 7.3 fl (7.4-10.4); MONOCYTES % 6.6 % (2.0-8.0); NEUTROPHILS % 48.6 % (40.0-76.0); PLATELET 282 x1000/uL (130-400); RED BLOOD CELL COUNT 4.47 mill/uL (4.2-5.4); RED CELL DISTRIBUTION WIDTH 16.4 % (11.6-14.6)
[2025-01-09 19:46] LABS: CLARITY URINE CLEAR (CLEAR); GLUCOSE URINE NEGATIVE (NEGATIVE); KETONES URINE TRACE (NEGATIVE); LEUKOCYTE ESTERASE URINE NEGATIVE (NEGATIVE); NITRITE URINE NEGATIVE (NEGATIVE); OCCULT BLOOD URINE 2+ (NEGATIVE); PH URINE 5.0 (4.5-8.0); PROTEIN URINE NEGATIVE (NEGATIVE); SPECIFIC GRAVITY URINE 1.016 (1.005-1.030); UROBILINOGEN URINE 1.0 E.U./dL (0.2-1.0)
[2025-01-09 19:55] LABS: CREATININE 1.3 mg/dL (0.6-1.0)
[2025-01-09 19:56] LABS: UREA NITROGEN BLOOD 7 mg/dL (9-23)
[2025-01-09 19:57] LABS: ASPARTATE AMINOTRANSFERASE 100 IU/L (<34)
[2025-01-09 19:58] LABS: BILIRUBIN DIRECT 0.3 mg/dL (<=3.0); BILIRUBIN TOTAL 0.7 mg/dL (0.1-1.0); PROTEIN TOTAL 7.5 g/dL (6.0-8.3)
[2025-01-09 21:16] LABS: COLOR URINE STRAW (YELLOW)
[2025-01-09 21:17] LABS: BACTERIA URINE NONE SEEN; RBC URINE 0-2 /hpf (0-2); SQUAMOUS EPITHELIAL CELL URINE 1+ /lpf (RARE/1+); WBC URINE 0-2 /hpf (0-2)
[2025-01-09] MEDS ORDERED: ONDA-239 PO (21:26)
[2025-01-09 21:38] VITALS: BP 158/112; PULSE 106; RESP 15; TEMP 36.6; O2SAT 99
== END 2025-01-09 21:39 | disposition home or self-care (01) ==
LOC: ER 17:35
DX: R11.2 Nausea with vomiting, unspecified (principal); F32.A Depression, unspecified; E11.9 Type 2 diabetes mellitus without complications; I10 Essential (primary) hypertension; Z98.890 Other specified postprocedural states
CPT/HCPCS: 99285; 74176; 80076; 80048; 81003; 83690; 85025; 36415; 96372; J1200; J2765